=== PATIENT | female | born 1970 | race Caucasian/White ===

== ENCOUNTER → 2021-06-09 | Outpatient (CLI) | payer BC | LOC: MC.RAD 04-11 13:00 | DX: Z12.31 Encounter for screening mammogram for malignant neoplasm of breast (principal) ==

== ENCOUNTER → 2021-09-03 | Outpatient (CLI) | payer BC | LOC: COL.RAD 07:55 | DX: M47.26 Other spondylosis with radiculopathy, lumbar region (principal); M51.16 Intervertebral disc disorders with radiculopathy, lumbar region; M48.02 Spinal stenosis, cervical region ==

== ENCOUNTER → 2022-01-07 | Outpatient (CLI) | payer BC | LOC: COL.RAD 14:12 | DX: M54.12 Radiculopathy, cervical region (principal); M79.605 Pain in left leg; M54.41 Lumbago with sciatica, right side; G89.29 Other chronic pain; R20.0 Anesthesia of skin; M25.511 Pain in right shoulder ==

== ENCOUNTER → 2022-05-26 | Outpatient (RCR) | payer BC | LOC: WSOT | DX: G56.22 Lesion of ulnar nerve, left upper limb (principal) ==

== ENCOUNTER 2022-07-23 09:00 | Outpatient (RCR) | payer BC | END 2022-07-24 | disposition home or self-care (01) | LOC: PT.GENESIS | DX: M54.12 Radiculopathy, cervical region (principal); M25.511 Pain in right shoulder; M54.50 Low back pain, unspecified ==

== ENCOUNTER → 2022-07-31 | Outpatient (CLI) | payer BC | LOC: COL.RAD 08:58 | DX: M75.111 Incomplete rotator cuff tear or rupture of right shoulder, not specified as traumatic (principal); M19.011 Primary osteoarthritis, right shoulder ==

== ENCOUNTER 2022-08-20 09:00 | Outpatient (RCR) | payer BC | END 2022-08-23 | disposition home or self-care (01) | LOC: PT.GENESIS | DX: M54.12 Radiculopathy, cervical region (principal); M25.511 Pain in right shoulder; M54.50 Low back pain, unspecified ==

== ENCOUNTER 2022-12-16 10:45 | Outpatient (RCR) | payer BC | END 2022-12-24 | disposition home or self-care (01) | LOC: PT.GENESIS | DX: M75.51 Bursitis of right shoulder (principal); M75.81 Other shoulder lesions, right shoulder; M75.111 Incomplete rotator cuff tear or rupture of right shoulder, not specified as traumatic ==

== ENCOUNTER 2023-01-12 08:45 | Outpatient (RCR) | payer BC | END 2023-01-12 14:30 | disposition home or self-care (01) | LOC: PT.GENESIS 08:45 | DX: M75.51 Bursitis of right shoulder (principal); M75.81 Other shoulder lesions, right shoulder; M75.111 Incomplete rotator cuff tear or rupture of right shoulder, not specified as traumatic; Z98.890 Other specified postprocedural states ==

== ENCOUNTER 2023-03-16 11:15 | Outpatient (RCR) | payer BC | END 2023-03-23 11:33 | disposition home or self-care (01) | LOC: PT.GENESIS 11:15 | DX: M54.16 Radiculopathy, lumbar region (principal); M48.02 Spinal stenosis, cervical region ==

== ENCOUNTER 2023-04-22 09:00 | Outpatient (RCR) | payer BC | END 2023-04-25 | disposition home or self-care (01) | LOC: PT.GENESIS | DX: M54.16 Radiculopathy, lumbar region (principal); M48.02 Spinal stenosis, cervical region ==

== ENCOUNTER → 2024-02-02 | Outpatient (CLI) | payer BC | LOC: MC.RAD 14:22 | DX: Z12.31 Encounter for screening mammogram for malignant neoplasm of breast (principal) ==